=== PATIENT | male | born 2000 | race Caucasian/White ===

== ENCOUNTER 2022-06-15 16:52 | Outpatient (CLI) | payer OTHER, SELFPAY ==
--- NOTE | ~2022-06-15 | MR_ITS ---
MRI of the left knee Clinical history: Medial meniscus tear Technique: Coronal proton density and proton density-weighted images, sagittal proton-density and T2 fat-sat images, and axial proton-density fat-saturated images were acquired. Findings: Patient is status post ACL graft reconstruction. ACL graft is intact, with normal morpholog y and signal. 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 Posterior cruciate ligament is intact. Medial collateral l igament and the lateral collateral ligament complex are intact. Popliteus tendon is intact. There is horizontal/oblique tearing of the posterior horn of the medial meniscus. No lateral meniscal tear identified. Articular cartilage is well preserved in all 3 joint compartments. Bone marrow signals are unremarkab le. Extensor mechanism is intact. There is no significant joint effusion. Small Felton's cyst is present. Impression: Horizontal/oblique tearing of the posterior horn of the medial meniscus. Status post ACL graft reconstruction. 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 Correlate with patient's symptomatology. ACL graft itself is intact otherwise. Small Felton's cyst. Reviewed, dictated and finalized at location . [employer] Impression: Horizontal/oblique tearing of the posterior horn of the medial meniscus. Status post ACL graft reconstruction. Suspected Cyclops lesion/localized anteri or arthrofibrosis, as detailed above. Correlate with patient's symptomatology. ACL graft itself is intact otherwise. Small Felton's cyst.
== END 2022-06-15 16:53 | disposition home or self-care (01) ==
PROVIDERS: Visit Provider Orthopaedic Surgery
DX: S83.242A Other tear of medial meniscus, current injury, left knee, initial encounter (principal); M71.22 Synovial cyst of popliteal space [Baker], left knee; X58.XXXA Exposure to other specified factors, initial encounter
CPT/HCPCS: 73721